=== PATIENT | female | born 1960 | race Caucasian/White ===

== ENCOUNTER 2017-07-19 11:15 | Emergency (ER) | payer MEDICARE, MEDICAID ==
[~2017-07-19] VITALS: Ht 162.6 cm; Wt 77.1 kg
[~2017-07-19 11:15] MED LIST: ASCORBIC ACID500 M3 PO; ATENOLOL25 MG PO; ATENOLOL50 MG PO; HYDROCODON-ACE1 EA11 PO; IRON240 MG PO; KETOROLAC TROME10 MG PO; LISINOPRIL10 MG PO; LISINOPRIL20 MG PO; MIRALAX17 GM PO; OXYCODONE HCL15 MG PO; OXYCODONE HCL5 MG PO; TRAMADOL HCL50 MG PO; XARELTO10 MG PO
[2017-07-19] MEDS ORDERED: OMEPRAZOLE20 MG PO (11:38)
[2017-07-19] MEDS ORDERED: NORCO 5-325 TA1 EACH PO (13:19)
== END 2017-07-19 13:25 | disposition home or self-care (01) ==
LOC: ED 11:15
DX: S70.11XA Contusion of right thigh, initial encounter (principal); I25.2 Old myocardial infarction; Z87.891 Personal history of nicotine dependence; Z90.710 Acquired absence of both cervix and uterus; Z96.641 Presence of right artificial hip joint; Z79.899 Other long term (current) drug therapy; W17.81XA Fall down embankment (hill), initial encounter
CPT/HCPCS: 72170; 73552; 99283